=== PATIENT | female | born 1995 | race Caucasian/White ===

== ENCOUNTER 2020-05-02 19:15 | Inpatient (IN) | payer OTHER ==
[2020-04-28] MEDS: Albuterol Sulfate 2.5 mg/3 ml Neb NEB SCH (18:30)
[2020-05-02] MEDS ORDERED: Promethazine HCl 25 MG/ML VIAL IM PRN (19:44)
[2020-05-02] MEDS ORDERED: Lidocaine 1% (PF) 30 ML VIAL SC PRN (19:44)
[2020-05-02] MEDS ORDERED: Acetaminophen 500 MG TAB PO PRN (19:44)
[2020-05-02] MEDS ORDERED: hydrALAZINE 20 MG/ML VIAL SLOW IVP PRN (19:44)
[2020-05-02 19:58] VITALS: BMI 34.4
[2020-05-02] MEDS ORDERED: NS w/ Oxytocin 30 units 500 ML IVPB PRN (20:00)
[2020-05-02] MEDS: Lactated Ringer's 1,000 ML IV SCH (20:10)
[2020-05-02 20:44] LABS: Hemoglobin 9.4 g/dL (12.0-15.5); Mean Corpuscular HGB CONC 30.6 g/dL (32.0-36.0); Mean Corpuscular Hemoglobin 24.2 pg (27.0-33.0); Mean Corpuscular Volume 79.1 fl (81.6-98.3); Mean Platelet Volume 10.6 fl (7.4-10.4); Platelet Count 300 10x3/uL (150-450); RBC Distribution Width 18.1 % (11.5-14.5); Red Blood Cell (RBC) Count 3.88 10x6/uL (3.90-5.03); White Blood Cell (WBC) Count 14.5 10x3/uL (3.5-10.5)
[2020-05-02] MEDS ORDERED: Misoprostol 200 MCG TAB PR PRN (20:45)
[2020-05-02] MEDS ORDERED: Diphenoxylate HCl/Atropine Tablet PO PRN ×2 (20:45)
[2020-05-02] MEDS ORDERED: Ibuprofen 800 MG TAB PO PRN (20:45)
[2020-05-02] MEDS ORDERED: Carboprost 250 MCG/ML AMP IM PRN (20:45)
[2020-05-02] MEDS ORDERED: Methylergonovine 0.2 MG/ML VIAL IM PRN (20:45)
[2020-05-02] MEDS ORDERED: Penicillin G Potassium 5 MILL.UNITS in Sodium Chloride 0.9% 100 ML IVPB SCH (21:00)
[2020-05-02 21:20] LABS: Hep B Surf Ag Non-Reactive S/CO (NonReactive)
[2020-05-02 21:21] LABS: Syphilis Antibody Nonreactive (Nonreactive); Syphilis Antibody Index 0.03 S/CO (<1.00 Non-Reactive)
[2020-05-02 21:23] LABS: HBSAg Index 0.17 S/CO (0-0.99)
[2020-05-02] MEDS: Misoprostol 100 MCG TAB VAG SCH (21:27)
[2020-05-03] MEDS ORDERED: Penicillin G Potassium 5 MILL.UNITS VIAL ONE (01:50)
[2020-05-03] MEDS ORDERED: Loratadine 10 MG TAB PO SCH (02:00)
[2020-05-03] MEDS ORDERED: Fentanyl 4 mcg/Bup 0.1% Cadd 100 ML ONE ×3 (03:44→19:16)
[2020-05-03] MEDS ORDERED: Fentanyl 100 MCG/2 ML VIAL ONE (04:21)
[2020-05-03] MEDS ORDERED: Fentanyl 100 MCG/2 ML VIAL SLOW IVP PRN (04:30)
[2020-05-03] MEDS ORDERED: Fentanyl 4 mcg/Bup 0.1% Cadd 100 ML in Premix Bag 1 BAG EPIDURAL SCH (04:30)
[2020-05-03] MEDS: Penicillin G 2.5 MILL.units 2.5 MILL.UNITS in Premix Bag 1 BAG IVPB SCH ×5 (06:26→19:21)
[2020-05-03] MEDS ORDERED: diphenhydrAMINE 50 MG/ML VIAL IVP PRN (08:06)
[2020-05-03] MEDS: Ondansetron PF 4 MG/2 ML Vial IVP PRN ×2 (09:26→19:48)
[2020-05-03] MEDS: Lactated Ringer's 1,000 ML IV SCH ×2 (09:30→18:26)
[2020-05-03] MEDS: Albuterol Sulfate 2.5 mg/3 ml Neb NEB SCH (10:26)
[2020-05-03] MEDS: Misoprostol 100 MCG TAB VAG SCH ×2 (17:07→17:08)
[2020-05-03] MEDS ORDERED: Albuterol Sulfate 2.5 mg/3 ml Neb ONE (18:35)
[2020-05-03] MEDS ORDERED: Bicitra 30 ML UDCUP PO PRN (21:34)
[2020-05-03] MEDS ORDERED: Famotidine/PF 20 mg/2ml Vial SLOW IVP PRN (21:34)
[2020-05-03] MEDS ORDERED: Morphine PF 10 MG/10 ML VIAL ONE (21:44)
[2020-05-03] MEDS ORDERED: Azithromycin 500 MG in Sodium Chloride 0.9% 250 ML 250 ML IVPB SCH (21:45)
[2020-05-03] MEDS ORDERED: Oxytocin 10 UNITS/ML VIAL ONE (21:45)
[2020-05-03] MEDS ORDERED: CEFAZOLIN 2 GM in Premix Bag 1 BAG IVPB SCH (21:45)
[2020-05-03] MEDS ORDERED: Ondansetron PF 4 MG/2 ML Vial ONE (22:15)
[2020-05-03] MEDS ORDERED: Phytonadione Neonatal 1 MG/0.5 ML AMP ONE (23:02)
[2020-05-03] MEDS ORDERED: Erythromycin Base 0.5% Oint 1 GM TUBE ONE (23:02)
[2020-05-04] MEDS ORDERED: Communication Order-Pharmacy FS SCH ×2 (00:15→01:15)
[2020-05-04] MEDS ORDERED: Meperidine HCl/PF 25 MG/ML VIAL SLOW IVP SCH (00:15)
[2020-05-04] MEDS: Ketorolac Tromethamine 30 MG/ML VIAL IVP SCH ×4 (00:17→18:07)
[2020-05-04] MEDS ORDERED: Naloxone HCl 0.4 mg/ml Vial IVP PRN ×2 (01:05)
[2020-05-04] MEDS ORDERED: Meperidine HCl/PF 25 MG/ML VIAL SLOW IVP PRN (01:05)
[2020-05-04] MEDS ORDERED: Ketorolac Tromethamine 30 MG/ML VIAL IVP PRN (01:05)
[2020-05-04] MEDS ORDERED: Ondansetron HCl/PF 4 MG/2 ML Vial IVP PRN (01:05)
[2020-05-04] MEDS ORDERED: diphenhydrAMINE 50 MG/ML VIAL IVP PRN (01:05)
[2020-05-04] MEDS ORDERED: HYDROmorphone 2 MG/ML VIAL SLOW IVP PRN (01:05)
[2020-05-04] MEDS ORDERED: Naloxone HCl 0.4 mg/ml Vial IV PRN (01:05)
[2020-05-04] MEDS ORDERED: Promethazine HCl 25 MG/ML VIAL IM PRN (01:05)
[2020-05-04] MEDS ORDERED: Promethazine HCl 25 MG SUPP PR PRN (01:05)
[2020-05-04] MEDS ORDERED: L&D-Morphine 4 MG/ML VIAL SLOW IVP PRN (01:05)
[2020-05-04] MEDS ORDERED: Ketorolac Tromethamine 30 MG/ML VIAL IVP SCH (01:15)
[2020-05-04] MEDS ORDERED: Ondansetron PF 4 MG/2 ML Vial IVP PRN (01:44)
[2020-05-04] MEDS ORDERED: Simethicone Chewable 80 MG TAB PO PRN (01:44)
[2020-05-04] MEDS ORDERED: Lanolin Ointment 7 GM TUBE TOP PRN (01:44)
[2020-05-04] MEDS ORDERED: Acetaminophen 325 MG TAB PO PRN (01:44)
[2020-05-04] MEDS ORDERED: NS / Oxytocin 40 units/1000ml 1,000 ML IV SCH (01:44)
[2020-05-04] MEDS ORDERED: hydrALAZINE 20 MG/ML VIAL SLOW IVP PRN (01:44)
[2020-05-04] MEDS: Penicillin G 2.5 MILL.units 2.5 MILL.UNITS in Premix Bag 1 BAG IVPB SCH (02:23)
[2020-05-04] MEDS: Lactated Ringer's 1,000 ML IV SCH (02:23)
[2020-05-04] MEDS: Misoprostol 100 MCG TAB VAG SCH (02:24)
[2020-05-04] MEDS: Ibuprofen 800 MG TAB PO SCH ×3 (04:36→21:14)
[2020-05-04] MEDS: diphenhydrAMINE 25 MG CAP PO PRN ×3 (06:42→21:24)
[2020-05-04] MEDS ORDERED: Morphine 2 MG/ML VIAL SLOW IVP SCH (08:15)
[2020-05-04 08:28] LABS: Hemoglobin 8.7 g/dL (12.0-15.5)
[2020-05-04] MEDS: Ondansetron PF 4 MG/2 ML Vial IVP PRN (08:29)
[2020-05-04] MEDS: Prenatal Vitamin 1 TAB PO SCH (08:30)
[2020-05-04] MEDS: Ferrous Sulfate 325 MG TAB PO SCH ×2 (08:30→21:20)
[2020-05-04] MEDS ORDERED: Adacel (T-DAP) 0.5 ML SYRINGE IM ONE ×2 (09:00)
[2020-05-04] MEDS ORDERED: Varicella virus, LIVE 0.5 ML VIAL SC ONE (09:00)
[2020-05-04] MEDS ORDERED: Measles/Mumps/Rubella 10 MCG/0.5 ML VIAL SC ONE (09:00)
[2020-05-05] MEDS ORDERED: HYDROcodone/Acetaminophen 5/325 mg Tablet PO PRN (00:15)
[2020-05-05] MEDS: Ketorolac Tromethamine 30 MG/ML VIAL IVP SCH ×3 (00:30→14:22)
[2020-05-05] MEDS: Ibuprofen 800 MG TAB PO SCH ×2 (05:05→14:39)
[2020-05-05] MEDS: Ondansetron PF 4 MG/2 ML Vial IVP PRN (05:06)
[2020-05-05] MEDS ORDERED: Docusate 100 MG CAP PO PRN (08:03)
[2020-05-05] MEDS ORDERED: Ondansetron ODT 4 MG TAB PO PRN (08:04)
[2020-05-05] MEDS: Prenatal Vitamin 1 TAB PO SCH (09:34)
[2020-05-05] MEDS: Ferrous Sulfate 325 MG TAB PO SCH (09:34)
[2020-05-05] MEDS: HYDROcodone/Acetaminophen 5/325 mg Tablet PO PRN ×2 (09:42→14:39)
[2020-05-05 12:35] VITALS: BP 106/59; TEMP 98.2
== END 2020-05-05 16:54 | disposition home or self-care (01) | DRG 787 ==
LOC: CSHLD 19:27 → CSHPP 05-04 02:00
PROVIDERS: ADMIT Emergency Medicine; ATTEND Emergency Medicine
PROC: 10D00Z1 Extraction of Products of Conception, Low, Open Approach (ICD-10-PCS; principal; 2020-05-03)
PROC: 10907ZC Drainage of Amniotic Fluid, Therapeutic from Products of Conception, Via Natural or Artificial Opening (ICD-10-PCS; 2020-05-03)
PROC: 10H07YZ Insertion of Other Device into Products of Conception, Via Natural or Artificial Opening (ICD-10-PCS; 2020-05-03)
PROC: 3E033VJ Introduction of Other Hormone into Peripheral Vein, Percutaneous Approach (ICD-10-PCS; 2020-05-03)
DX: O76 Abnormality in fetal heart rate and rhythm complicating labor and delivery (principal); O41.03X0 Oligohydramnios, third trimester, not applicable or unspecified; O99.02 Anemia complicating childbirth; D50.9 Iron deficiency anemia, unspecified; O99.824 Streptococcus B carrier state complicating childbirth; O99.214 Obesity complicating childbirth; E66.9 Obesity, unspecified; R07.9 Chest pain, unspecified; O26.893 Other specified pregnancy related conditions, third trimester; O36.63X0 Maternal care for excessive fetal growth, third trimester, not applicable or unspecified; O62.0 Primary inadequate contractions; O32.8XX0 Maternal care for other malpresentation of fetus, not applicable or unspecified; O66.0 Obstructed labor due to shoulder dystocia; Z3A.39 39 weeks gestation of pregnancy; Z37.0 Single live birth; Z86.16 Personal history of COVID-19
CPT/HCPCS: 36415; 51702; 85014; 85018; 85027; 86780; 86850; 86900; 86901; 87340; 88307; 93005; 93010; 94640; J0456; J0690; J1200; J1885; J2175; J2270; J2405; J2540; J2590; J3490; J7050; J7611; Q0163